=== PATIENT | female | born 1975 | race Two or more races ===

== ENCOUNTER 2018-01-27 20:38 | Inpatient (IN) | payer MEDICAID ==
[~2018-01-27] VITALS: Ht 170.2 cm; Wt 129.6 kg
[~2018-01-27 20:38] MED LIST: AMLO5TAB2 PO; BENA20TA14 PO; INSLANTI SC; METF-370 PO; SITA100T7 PO
[2018-01-27] MEDS ORDERED: cloNIDine HCL 0.1 MG TAB PO ONE (21:00)
[2018-01-27] MEDS ORDERED: ASPirin 81 mg TAB PO ONE (21:45)
[2018-01-27 21:56] LABS: Basophils # (auto) 0.1 uL; Basophils % (auto) 1.1 % (0.0-2.0); Eosinophils # (auto) 0.2 uL; Hematocrit 42.4 % (36.0-46.0); Hemoglobin 13.8 g/dL (12.2-16.2); Lymphocytes # (auto) 3.5 uL; Lymphocytes % (auto) 31.9 % (10.0-50.0); Mean Corpuscular Hemoglobin 27.6 pg (28.0-32.0); Mean Corpuscular Hgb Conc. 32.5 g/dL (32.0-36.0); Monocytes # (auto) 0.4 uL; Monocytes % (auto) 3.9 % (0.0-12.0); Neutrophils # (auto) 6.7 uL; Neutrophils % (auto) 61.1 % (37.0-80.0); Nucleated Red Blood Cells % 0.2 %; Platelet Count (auto) 294 10^3/uL (140-450); Red Blood Cells 4.98 10^6/uL (4.0-5.20); Red Cell Distribution Width 16.2 % (11.8-14.3)
[2018-01-27 22:20] LABS: Albumin 2.5 g/dL (3.4-5.0); BUN/Creatinine Ratio 12.3; Calcium 7.9 mg/dL (8.5-10.1); Magnesium 2.2 mg/dL (1.6-2.6); Potassium 3.6 mmol/L (3.5-5.1)
[2018-01-27 22:25] LABS: Bilirubin, Total 0.1 mg/dL (0.2-1.0); Total Protein 6.6 g/dL (6.4-8.2)
[2018-01-27 22:26] LABS: Urine Bacteria NONE SEEN /hpf (None Seen); Urine Blood 1+ /uL (Negative); Urine Mucus FEW (None Seen); Urine Specific Gravity 1.032 (1.001-1.035); Urine WBC 29 /hpf (0 - 5)
[2018-01-27 22:43] LABS: Alcohol, Urine < 3.0 mg/dL (0-5); Amphetamine Screen, Urine NEGATIVE (NEGATIVE); Barbiturate Scree,Urine NEGATIVE (NEGATIVE); Benzodiazephine Screen, Urine NEGATIVE (NEGATIVE); Cannabinoid Screen, Urine NEGATIVE (NEGATIVE); Cocaine Screen, Urine NEGATIVE (NEGATIVE); Opiate Scree,Urine NEGATIVE (NEGATIVE); Phencyclidine Screen, Urine NEGATIVE (NEGATIVE)
[2018-01-27] MEDS ORDERED: LABETALOL HCL 200 MG TAB PO ONE (23:30)
[2018-01-28] MEDS ORDERED: LABETALOL HCL 200 MG TAB PO ONE (01:30)
[2018-01-28] MEDS ORDERED: FUROSEMIDE 20 MG/2 ML VIAL IV ONE (02:15)
[2018-01-28] MEDS ORDERED: ONDANSETRON HCL 4 MG/2 ML VIAL IV PRN (03:30)
[2018-01-28] MEDS ORDERED: MORPHINE SULFATE 8mg/ml INJ SDV IV PRN (03:30)
[2018-01-28] MEDS ORDERED: HYDROcodone-ACET 5/325MG TAB PO PRN (03:30)
[2018-01-28] MEDS ORDERED: NITROGLYCERIN 0.4 MG SL TAB SL PRN (03:30)
[2018-01-28] MEDS ORDERED: DEXTROSE (50%) 50ML SYRG IV PRN (04:15)
[2018-01-28 05:25] VITALS: BP 169/98
[2018-01-28] MEDS: ACCU-CHEK COMFORT CURVE STRIP VI SCH ×4 (06:29→21:30)
[2018-01-28] MEDS: InsuLIN REG 1unit/0.01ml Soln (100units/ml) SC SCH ×4 (06:29→21:31)
[2018-01-28 07:36] LABS: Basophils # (auto) 0.1 uL; Basophils % (auto) 0.6 % (0.0-2.0); Eosinophils # (auto) 0.2 uL; Eosinophils % (auto) 2.1 % (0.0-7.0); Hematocrit 39.5 % (36.0-46.0); Lymphocytes # (auto) 3.6 uL; Lymphocytes % (auto) 38.5 % (10.0-50.0); Mean Corpuscular Hemoglobin 27.8 pg (28.0-32.0); Mean Corpuscular Hgb Conc. 32.8 g/dL (32.0-36.0); Mean Corpuscular Volume 84.9 fL (80.0-100.0); Monocytes # (auto) 0.5 uL; Monocytes % (auto) 5.3 % (0.0-12.0); Neutrophils # (auto) 5.1 uL; Neutrophils % (auto) 53.5 % (37.0-80.0); Platelet Count (auto) 254 10^3/uL (140-450); Red Blood Cells 4.66 10^6/uL (4.0-5.20); Red Cell Distribution Width 16.4 % (11.8-14.3); White Blood Cell 9.5 10^3/uL (4.4-10.8)
[2018-01-28 08:04] LABS: BUN/Creatinine Ratio 15.9; Calcium 8.1 mg/dL (8.5-10.1); Potassium 3.2 mmol/L (3.5-5.1)
[2018-01-28 08:52] VITALS: BP 156/76
[2018-01-28] MEDS: ASPirin-EC 81 mg tab PO SCH (10:14)
[2018-01-28] MEDS: cefTRIAXone 1GM/10ml IVPUSH 10 ML IV SCH (10:15)
[2018-01-28] MEDS: FUROSEMIDE 40 MG/4 ML VIAL IV SCH (10:15)
[2018-01-28] MEDS: CLOPIDOGREL BISULFATE 75 MG TAB PO SCH (10:15)
[2018-01-28] MEDS: METOPROLOL TARTRATE 25 MG TAB PO SCH ×2 (10:16→21:23)
[2018-01-28] MEDS ORDERED: POTASSIUM CHL 20 Meq TABLET PO ONE (11:00)
[2018-01-28 13:14] VITALS: BP 158/99
[2018-01-28] MEDS: LISINOPRIL 20 MG TAB PO SCH (15:34)
[2018-01-28 17:05] VITALS: BP 143/69
[2018-01-28] MEDS: ATORVASTATIN 20 MG TAB PO SCH (21:23)
[2018-01-28 21:43] VITALS: BP 166/96
[2018-01-28] MEDS: cloNIDine HCL 0.1 MG TAB PO PRN (23:09)
[2018-01-29] MEDS: ACETAMINOPHEN 500 MG TAB PO PRN ×2 (00:39→12:11)
[2018-01-29 04:58] VITALS: BP 163/103
[2018-01-29] MEDS: cloNIDine HCL 0.1 MG TAB PO PRN ×3 (05:14→22:39)
[2018-01-29] MEDS: InsuLIN REG 1unit/0.01ml Soln (100units/ml) SC SCH ×5 (07:07→21:29)
[2018-01-29] MEDS: ACCU-CHEK COMFORT CURVE STRIP VI SCH ×4 (07:07→21:29)
[2018-01-29 07:18] LABS: Basophils # (auto) 0 uL; Basophils % (auto) 0.5 % (0.0-2.0); Eosinophils # (auto) 0.3 uL; Hematocrit 38.3 % (36.0-46.0); Hemoglobin 12.5 g/dL (12.2-16.2); Lymphocytes # (auto) 3.6 uL; Lymphocytes % (auto) 37.9 % (10.0-50.0); Mean Corpuscular Hemoglobin 27.9 pg (28.0-32.0); Mean Corpuscular Hgb Conc. 32.7 g/dL (32.0-36.0); Mean Corpuscular Volume 85.2 fL (80.0-100.0); Monocytes # (auto) 0.6 uL; Monocytes % (auto) 5.9 % (0.0-12.0); Neutrophils % (auto) 52.7 % (37.0-80.0); Nucleated Red Blood Cells % 0.1 %; Platelet Count (auto) 251 10^3/uL (140-450); White Blood Cell 9.4 10^3/uL (4.4-10.8)
[2018-01-29 08:04] LABS: Alanine Aminotransferase 24 U/L (13-56); Albumin 2.4 g/dL (3.4-5.0); Alkaline Phosphatase 56 U/L (45-117); Anion Gap 8 (5-15); Aspartate Aminotransferase 19 U/L (15-37); Bilirubin, Direct < 0.1 mg/dL (0-0.2); Bilirubin, Total 0.3 mg/dL (0.2-1.0); Blood Urea Nitrogen 23 mg/dL (7-18); Calcium 8.1 mg/dL (8.5-10.1); Carbon Dioxide 26 mmol/L (21-32); Chloride 106 mmol/L (98-107); GFR African American 59 mL/min; GFR Non-African American 49 mL/min; Glucose 145 mg/dL (74-106); Magnesium 2.5 mg/dL (1.6-2.6); Potassium 3.5 mmol/L (3.5-5.1); Sodium 140 mmol/L (136-145); Total Protein 5.9 g/dL (6.4-8.2)
[2018-01-29] MEDS: cefTRIAXone 1GM/10ml IVPUSH 10 ML IV SCH (08:37)
[2018-01-29] MEDS: ASPirin-EC 81 mg tab PO SCH (08:38)
[2018-01-29] MEDS: FUROSEMIDE 40 MG/4 ML VIAL IV SCH (08:38)
[2018-01-29] MEDS: METOPROLOL TARTRATE 25 MG TAB PO SCH ×2 (08:39→21:23)
[2018-01-29] MEDS: LISINOPRIL 20 MG TAB PO SCH (08:39)
[2018-01-29] MEDS: CLOPIDOGREL BISULFATE 75 MG TAB PO SCH (08:39)
[2018-01-29 08:51] VITALS: BP 157/93
[2018-01-29] MEDS ORDERED: POTASSIUM CHL 20 Meq TABLET PO SCH (10:00)
[2018-01-29] MEDS ORDERED: amLODIPine BESYLATE 5 MG TAB PO SCH (10:30)
[2018-01-29 13:13] VITALS: BP 156/111
[2018-01-29 16:30] VITALS: BP 162/103
[2018-01-29 17:26] VITALS: BP 156/103
[2018-01-29] MEDS: ATORVASTATIN 20 MG TAB PO SCH (21:23)
[2018-01-29 21:24] VITALS: BP 158/72
[2018-01-30] MEDS: cloNIDine HCL 0.1 MG TAB PO PRN (04:39)
[2018-01-30 04:49] VITALS: BP 157/82
[2018-01-30 05:56] LABS: Basophils # (auto) 0 uL; Basophils % (auto) 0.4 % (0.0-2.0); Eosinophils # (auto) 0.3 uL; Eosinophils % (auto) 2.5 % (0.0-7.0); Hematocrit 41.2 % (36.0-46.0); Hemoglobin 13.7 g/dL (12.2-16.2); Lymphocytes # (auto) 3.3 uL; Lymphocytes % (auto) 30.4 % (10.0-50.0); Mean Corpuscular Hemoglobin 28.3 pg (28.0-32.0); Mean Corpuscular Hgb Conc. 33.3 g/dL (32.0-36.0); Monocytes # (auto) 0.6 uL; Monocytes % (auto) 5.8 % (0.0-12.0); Neutrophils # (auto) 6.6 uL; Neutrophils % (auto) 60.9 % (37.0-80.0); Nucleated Red Blood Cells % 0.1 %; Platelet Count (auto) 268 10^3/uL (140-450); Red Blood Cells 4.84 10^6/uL (4.0-5.20); White Blood Cell 10.9 10^3/uL (4.4-10.8)
[2018-01-30] MEDS: ACCU-CHEK COMFORT CURVE STRIP VI SCH ×2 (06:00→11:30)
[2018-01-30] MEDS: InsuLIN REG 1unit/0.01ml Soln (100units/ml) SC SCH ×2 (06:00→11:30)
[2018-01-30 06:15] LABS: Calcium 8.5 mg/dL (8.5-10.1); Potassium 4.1 mmol/L (3.5-5.1)
[2018-01-30 06:17] LABS: BUN/Creatinine Ratio 17.8
[2018-01-30] MEDS ORDERED: ADENOSINE 109 MG in GIVE UN-DILUTED 0 ML IV STA (08:25)
[2018-01-30] MEDS: FUROSEMIDE 40 MG/4 ML VIAL IV SCH (08:53)
[2018-01-30] MEDS: cefTRIAXone 1GM/10ml IVPUSH 10 ML IV SCH (08:53)
[2018-01-30] MEDS: METOPROLOL TARTRATE 25 MG TAB PO SCH (08:54)
[2018-01-30] MEDS: LISINOPRIL 20 MG TAB PO SCH (08:55)
[2018-01-30 09:00] VITALS: BP 162/93
[2018-01-30 11:45] VITALS: BP 168/95
[2018-01-30 13:00] VITALS: BP 156/95
== END 2018-01-30 16:15 | disposition home or self-care (01) | DRG 194 ==
LOC: ER 20:38 → TELE 20:39 → TELE-WESTW 01-28 05:25
PROVIDERS: ADMIT Nurse Practitioner Family; ATTEND Internal Medicine
DX: I13.0 Hypertensive heart and chronic kidney disease with heart failure and stage 1 through stage 4 chronic kidney disease, or unspecified chronic kidney disease (principal); I21.4 Non-ST elevation (NSTEMI) myocardial infarction; N17.0 Acute kidney failure with tubular necrosis; I50.31 Acute diastolic (congestive) heart failure; K76.0 Fatty (change of) liver, not elsewhere classified; N30.00 Acute cystitis without hematuria; E44.1 Mild protein-calorie malnutrition; E11.9 Type 2 diabetes mellitus without complications; E11.22 Type 2 diabetes mellitus with diabetic chronic kidney disease; N18.3 Chronic kidney disease, stage 3 (moderate); Z68.41 Body mass index [BMI] 40.0-44.9, adult; E66.01 Morbid (severe) obesity due to excess calories; E87.6 Hypokalemia; E78.5 Hyperlipidemia, unspecified; I25.10 Atherosclerotic heart disease of native coronary artery without angina pectoris; I70.0 Atherosclerosis of aorta; J45.909 Unspecified asthma, uncomplicated; K42.9 Umbilical hernia without obstruction or gangrene; K80.20 Calculus of gallbladder without cholecystitis without obstruction; M77.9 Enthesopathy, unspecified; Z79.4 Long term (current) use of insulin; Z82.49 Family history of ischemic heart disease and other diseases of the circulatory system; Z83.3 Family history of diabetes mellitus; Z80.49 Family history of malignant neoplasm of other genital organs; Z80.3 Family history of malignant neoplasm of breast; Z87.891 Personal history of nicotine dependence; Z95.1 Presence of aortocoronary bypass graft; Z98.61 Coronary angioplasty status
CPT/HCPCS: 36415; 71045; 74176; 76830; 76856; 78452; 80048; 80053; 80076; 80307; 81001; 82962; 83036; 83690; 83735; 83880; 84484; 85025; 86304; 87086; 93005; 93017; 96374; J0153; J1815

== ENCOUNTER 2020-10-12 20:28 | Emergency (ER) | payer MEDICAID, OTHER ==
[~2020-10-12] VITALS: Ht 170.2 cm; Wt 84.4 kg
[~2020-10-12 20:28] MED LIST changes: +AMLO-489 PO; -AMLO5TAB2 PO; -BENA20TA14 PO
[2020-10-12] MEDS ORDERED: ACCU-CHEK COMFORT CURVE STRIP VI ONE (21:00)
[2020-10-12] MEDS ORDERED: NIFEdipine 10 MG CAP PO ONE (21:15)
[2020-10-12 22:46] LABS: Basophils # (auto) 0.1 10 ^3/uL (0-0.2); Basophils % (auto) 0.6 % (0.0-2.0); Eosinophils # (auto) 0 10 ^3/uL (0-0.8); Eosinophils % (auto) 0.3 % (0.0-7.0); Hematocrit 34.8 % (36.0-46.0); Hemoglobin 12.2 g/dL (12.2-16.2); Lymphocytes # (auto) 2.5 10 ^3/uL (0.4-5.4); Lymphocytes % (auto) 23.5 % (10.0-50.0); Mean Corpuscular Hemoglobin 31.2 pg (28.0-32.0); Mean Corpuscular Hgb Conc. 35.1 g/dL (32.0-36.0); Mean Corpuscular Volume 88.9 fL (80.0-100.0); Monocytes # (auto) 0.5 10 ^3/uL (0-1.3); Monocytes % (auto) 4.9 % (0.0-12.0); Neutrophils # (auto) 7.4 10 ^3/uL (1.6-8.6); Neutrophils % (auto) 70.7 % (37.0-80.0); Nucleated Red Blood Cells % 0.1 %; Red Blood Cells 3.91 10^6/uL (4.0-5.20); Red Cell Distribution Width 14.2 % (11.8-14.3); White Blood Cell 10.4 10^3/uL (4.4-10.8)
[2020-10-12 23:02] LABS: Albumin 3.4 g/dL (3.4-5.0); Potassium 4.2 mmol/L (3.5-5.1)
[2020-10-12 23:07] LABS: BUN/Creatinine Ratio 10.4; Bilirubin, Total 0.3 mg/dL (0.2-1.0); Total Protein 7.7 g/dL (6.4-8.2)
[2020-10-12] MEDS ORDERED: LEVE500T3 PO (23:44)
[2020-10-12] MEDS ORDERED: PHE100C PO (23:44)
[2020-10-12] MEDS ORDERED: levETIRAcetam 500 MG TAB PO ONE (23:45)
[2020-10-13] MEDS ORDERED: PHENYTOIN SODIUM 100 MG CAP PO ONE (00:30)
[2020-10-13 01:01] VITALS: BP 157/28
== END 2020-10-13 02:00 | disposition home or self-care (01) ==
LOC: ER 20:29
DX: G43.909 Migraine, unspecified, not intractable, without status migrainosus (principal); I10 Essential (primary) hypertension; E11.9 Type 2 diabetes mellitus without complications; E78.5 Hyperlipidemia, unspecified
CPT/HCPCS: 36415; 80053; 80185; 85025

== ENCOUNTER 2022-01-02 02:41 | Inpatient (IN) | payer OTHER ==
[~2022-01-02] VITALS: Ht 167.6 cm; Wt 86.4 kg
[2022-01-02] VITALS (16 sets, daily range): BP systolic 104–280; BP diastolic 55–137
[~2022-01-02 02:41] MED LIST changes: +LEVE500T3 PO; +PHE100C PO
[2022-01-02] MEDS ORDERED: ETOMIDATE (2MG/ML) 20ML VIAL IV ONE (03:05)
[2022-01-02] MEDS ORDERED: SUCCINYLCHOLINE CHLORIDE 20 MG/ML 10ML VIAL IV ONE (03:06)
[2022-01-02] MEDS: PROPOFOL 100 ML IV SCH ×2 (03:30→06:20)
[2022-01-02] MEDS ORDERED: PROPOFOL 100 ML IV ONE (03:30)
[2022-01-02] MEDS ORDERED: LORazepam 2MG/ML-1ML VIAL IV ONE (03:45)
[2022-01-02] MEDS ORDERED: levETIRAcetam 500 MG/5ML INJ IV ONE (04:09)
[2022-01-02 04:13] LABS: Eosinophils # (auto) 0.1 10 ^3/uL (0-0.8); Hemoglobin 7.3 g/dL (12.2-16.2); Lymphocytes # (auto) 1.1 10 ^3/uL (0.4-5.4); Lymphocytes % (auto) 10.1 % (10.0-50.0); Monocytes # (auto) 0.3 10 ^3/uL (0-1.3); Monocytes % (auto) 2.5 % (0.0-12.0)
[2022-01-02 04:14] LABS: Basophils # (auto) 0 10 ^3/uL (0-0.2); Basophils % (auto) 0.3 % (0.0-2.0); Hematocrit 21.4 % (36.0-46.0); Mean Corpuscular Hemoglobin 31.7 pg (28.0-32.0); Mean Corpuscular Hgb Conc. 34.2 g/dL (32.0-36.0); Mean Corpuscular Volume 92.7 fL (80.0-100.0); Neutrophils # (auto) 9.3 10 ^3/uL (1.6-8.6); Neutrophils % (auto) 86.1 % (37.0-80.0); Nucleated Red Blood Cells % 0.1 %; Red Blood Cells 2.31 10^6/uL (4.0-5.20); Red Cell Distribution Width 14.8 % (11.8-14.3); White Blood Cell 10.8 10^3/uL (4.4-10.8)
[2022-01-02 04:29] LABS: Albumin 2.8 g/dL (3.4-5.0); Calcium 6.3 mg/dL (8.5-10.1); Potassium 4.2 mmol/L (3.5-5.1)
[2022-01-02] MEDS ORDERED: LABETALOL HCL 5 MG/ML 4ML SYRINGE IV ONE (04:30)
[2022-01-02] MEDS ORDERED: hydrALAZINE HCL 20 MG/ML VL IV PRN (04:30)
[2022-01-02] MEDS ORDERED: DEXTROSE (50%) 50ML SYRG IV PRN (04:30)
[2022-01-02] MEDS ORDERED: SODIUM CHLORIDE 0.9% 1,000 ML IV SCH (04:30)
[2022-01-02] MEDS ORDERED: LABETALOL HCL 5 MG/ML 4ML SYRINGE IV PRN (04:30)
[2022-01-02] MEDS ORDERED: ONDANSETRON HCL 4 MG/2 ML VIAL IV PRN (04:30)
[2022-01-02 04:36] LABS: BUN/Creatinine Ratio 8.6; Bilirubin, Total 0.3 mg/dL (0.2-1.0); Total Protein 6.2 g/dL (6.4-8.2)
[2022-01-02 04:49] LABS: INR 1.03 (0.9-1.15); Partial Thromboplastin Time 27.6 sec (23.6-33.0)
[2022-01-02] MEDS ORDERED: NITROGLYCERIN 0.4 MG SL TAB SL PRN (05:15)
[2022-01-02] MEDS ORDERED: MORPHINE SULFATE INJECTION 2 MG/ML SYRG IV PRN (05:15)
[2022-01-02] MEDS ORDERED: InsuLIN REG 1unit/0.01ml Soln (100units/ml) SC SCH ×2 (07:00→22:00)
[2022-01-02] MEDS ORDERED: ACCU-CHEK COMFORT CURVE STRIP VI SCH (07:00)
[2022-01-02 07:40] LABS: Albumin 2.3 g/dL (3.4-5.0); Calcium 6.6 mg/dL (8.5-10.1); Potassium 4.3 mmol/L (3.5-5.1)
[2022-01-02 07:44] LABS: BUN/Creatinine Ratio 8.9; Bilirubin, Total 0.2 mg/dL (0.2-1.0); Total Protein 5.7 g/dL (6.4-8.2)
[2022-01-02 07:52] LABS: Basophils # (auto) 0 10 ^3/uL (0-0.2); Basophils % (auto) 0.2 % (0.0-2.0); Eosinophils # (auto) 0 10 ^3/uL (0-0.8); Eosinophils % (auto) 0.1 % (0.0-7.0); Lymphocytes # (auto) 0.8 10 ^3/uL (0.4-5.4); Mean Corpuscular Hemoglobin 32.2 pg (28.0-32.0); Mean Corpuscular Hgb Conc. 34.9 g/dL (32.0-36.0); Neutrophils % (auto) 86.1 % (37.0-80.0); Red Blood Cells 1.95 10^6/uL (4.0-5.20)
[2022-01-02 07:55] LABS: Lymphocytes % (auto) 7.8 % (10.0-50.0); Mean Corpuscular Volume 92.5 fL (80.0-100.0); Monocytes # (auto) 0.6 10 ^3/uL (0-1.3); Monocytes % (auto) 5.8 % (0.0-12.0); Neutrophils # (auto) 8.3 10 ^3/uL (1.6-8.6); Red Cell Distribution Width 14.8 % (11.8-14.3); White Blood Cell 9.6 10^3/uL (4.4-10.8)
[2022-01-02 07:59] LABS: Urine Specific Gravity 1.017 (1.001-1.035)
[2022-01-02 08:00] LABS: Urine Blood 1+ /uL (Negative)
[2022-01-02 08:51] LABS: Hemoglobin 6.3 g/dL (12.2-16.2)
[2022-01-02 09:43] LABS: Urine Bacteria FEW /hpf (None Seen); Urine WBC 3 /hpf (0 - 5)
[2022-01-02] MEDS ORDERED: amLODIPine BESYLATE 5 MG TAB NG SCH (10:00)
[2022-01-02] MEDS ORDERED: HEPARIN SODIUM (PORCINE) 5000 UNITS/ML 1ML VIAL SC SCH (10:00)
[2022-01-02] MEDS ORDERED: METOPROLOL TARTRATE 50 MG TAB NG SCH (10:00)
[2022-01-02] MEDS ORDERED: PANTOPRAZOLE 40 MG/10 ML VIAL INJ IV SCH (10:00)
== END 2022-01-02 09:25 | disposition short-term general hospital (02) | DRG 133 ==
LOC: EDUNIT# 02:41 → EDBD 02:41 → ER 02:41 → OVERFLOW 05:10 → ICU WEST 06:20
PROVIDERS: ADMIT Nurse Practitioner Family; ATTEND Nurse Practitioner Family
PROC: 5A1935Z Respiratory Ventilation, Less than 24 Consecutive Hours (ICD-10-PCS; principal; 2022-01-02)
PROC: 0BH17EZ Insertion of Endotracheal Airway into Trachea, Via Natural or Artificial Opening (ICD-10-PCS; 2022-01-02)
DX: J96.00 Acute respiratory failure, unspecified whether with hypoxia or hypercapnia (principal); N17.9 Acute kidney failure, unspecified; G40.901 Epilepsy, unspecified, not intractable, with status epilepticus; E88.09 Other disorders of plasma-protein metabolism, not elsewhere classified; D63.8 Anemia in other chronic diseases classified elsewhere; E11.65 Type 2 diabetes mellitus with hyperglycemia; I11.0 Hypertensive heart disease with heart failure; I50.9 Heart failure, unspecified; Z20.822 Contact with and (suspected) exposure to COVID-19; E66.9 Obesity, unspecified; J45.909 Unspecified asthma, uncomplicated; E78.5 Hyperlipidemia, unspecified; I16.0 Hypertensive urgency; I25.10 Atherosclerotic heart disease of native coronary artery without angina pectoris; I25.2 Old myocardial infarction; Z68.30 Body mass index [BMI] 30.0-30.9, adult; Z82.49 Family history of ischemic heart disease and other diseases of the circulatory system; Z82.5 Family history of asthma and other chronic lower respiratory diseases; Z82.62 Family history of osteoporosis; Z83.3 Family history of diabetes mellitus; Z95.1 Presence of aortocoronary bypass graft; Z98.61 Coronary angioplasty status; Z86.73 Personal history of transient ischemic attack (TIA), and cerebral infarction without residual deficits; Z79.84 Long term (current) use of oral hypoglycemic drugs
CPT/HCPCS: 31500; 36415; 70450; 71045; 80053; 80061; 81001; 82962; 83036; 83880; 84484; 85025; 85610; 85730; 86850; 86900; 86901; 87081; 93005; 94003; 96361; 96365; 96375; 99152; 99153; 99291; G0378; J0330; J2704; J3490; J7060